=== PATIENT | female | born 1945 | race Caucasian/White ===

== ENCOUNTER 2018-02-18 13:16 | Emergency (ER) | payer MEDICARE, OTHER ==
[~2018-02-18] VITALS: Ht 170.2 cm; Wt 73.0 kg
[2018-02-18 13:20] VITALS: BP 175/79; PULSE 59; RESP 20; TEMP 97.4; O2SAT 96
--- NOTE | 2018-02-18 14:13 | PD ---
HPI Chief Complaint: Headache Time Seen by Provider: 13:58 Travel History International Travel<30 days: No Contact w/Intl Traveler<30days: No Traveled to known affect area: No History of Present Illness HPI 72-year-old female with history of normal pressure hydrocephalus, MATERIAL MOVERS shunt placed in 2016, hypertension, presents for evaluation of headache. She reports over the past week she has had a left frontal aching headache, stiff neck, nausea. Today she had 2 episodes of emesis. She reports that she has had similar headaches 2 times in the past, both times after an MRI which required her shunt settings to be reset. Most recently she had an MRI 1 month ago and had her shunt settings reset after she denies chest pain, shortness of breath, abdominal pain, fevers or chills. Her neurosurgeon is Dr. dumont in [facility]. [facility] Past Medical History Depression: Yes GERD: Yes Hypertension: Yes ?: Not Past Surgical History Hysterectomy: Yes Neurologic Surgery: Yes (lamynectomy, shunt ) Tympanostomy Tube: Yes Social History Alcohol Use: Yes (ocassional ) Tobacco Use: No Substance Use: No Allergies-Medications (Allergen,Severity, Reaction): Coded Allergies: hydrocodone (Verified Allergy, Unknown, 02/18/18) metoprolol (Verified Allergy, Unknown, 02/18/18) Reported Meds & Prescriptions Reported Meds & Active Scripts Active Reported Oxycodone-Acetaminophen 7.5-325 mg Tab 1 Tab PO Q4H PRN Magnesium Oxide 250 Mg Tab 250 Mg PO DAILY Stow 3 1000 mg (Stow-3 Fatty Acids) 300 Mg-1,000 Mg Cap 1,000 Mg PO HS Biotin 5 Mg Cap 5 Mg PO Multiple Vitamin 1 Tab 1 Tab PO DAILY Vitamin D-1000 (Cholecalciferol) 1,000 Unit Tab 1,000 Units PO DAILY Vitamin B-12 (Cyanocobalamin) 1,000 Mcg Tab 1,000 Mcg PO DAILY Aspirin 81 Mg Chew 81 Mg CHEW DAILY Detrol (Tolterodine Tartrate) 2 Mg Tab 2 Mg PO DAILY Requip (Ropinirole) 1 Mg Tab 1 Mg PO HS Latanoprost Opth Drops (Latanoprost) 0.005% Drops 1 Drop EACH EYE HS Refrigerate until opened. Tramadol (Tramadol HCl) 50 Mg Tab 50 Mg PO Q4H PRN Altace (Ramipril) 5 Mg Cap 5 Mg PO BID Protonix (Pantoprazole Sodium) 40 Mg Tab 40 Mg PO BID Celexa (Citalopram Hydrobromide) 20 Mg Tab 20 Mg PO DAILY Amlodipine (Amlodipine Besylate) 5 Mg Tab 5 Mg PO DAILY Review of Systems Except as stated in HPI: all other systems reviewed are Neg Physical Exam Narrative GENERAL: Well-developed well-nourished female no acute distress SKIN: Warm and dry. HEAD: Atraumatic. Normocephalic. EYES: Pupils equal and round reactive to light, extraocular muscles are intact, no nystagmus.. No scleral icterus. No injection or drainage. ENT: No nasal bleeding or discharge. Mucous membranes pink and moist. NECK: Trachea midline. No JVD. Neck supple full range of motion. CARDIOVASCULAR: Regular rate and rhythm. No murmur appreciated. RESPIRATORY: No accessory muscle use. Clear to auscultation. Breath sounds equal bilaterally. GASTROINTESTINAL: Abdomen soft, non-tender, nondistended. Hepatic and splenic margins not palpable. MUSCULOSKELETAL: No obvious deformities. No clubbing. No cyanosis. No edema. NEUROLOGICAL: Awake and alert. No obvious cranial nerve deficits. Motor grossly within normal limits. Normal speech. Data Data Last Documented VS Vital Signs Date Time Temp Pulse Resp B/P (MAP) Pulse Ox O2 Delivery O2 Flow Rate FiO2 02/18/18 17:20 61 16 193/87 (122) 97 02/18/18 13:20 97.4 Orders Orders Shunt Series (02/18/18 ) Ct Brain W/O Iv Contrast(Rout) (02/18/18 ) Complete Blood Count With Diff (02/18/18 14:08) Basic Metabolic Panel (Bmp) (02/18/18 14:08) Iv Access Insert/Monitor (02/18/18 14:08) Morphine Inj (Morphine Inj) (02/18/18 14:15) Metoclopramide Inj (Reglan Inj) (02/18/18 14:15) Skull, One View (02/18/18 ) Ramipril (Altace) (02/18/18 18:45) Amlodipine (Norvasc) (02/18/18 18:45) Consult Neurosurgery (02/18/18 ) Ed Discharge Order (02/18/18 18:51) Labs Laboratory Tests Test 02/18/18 14:30 White Blood Count 6.3 TH/MM3 Red Blood Count 4.10 MIL/MM3 Hemoglobin 13.2 GM/DL Hematocrit 39.4 % Mean Corpuscular Volume 96.0 FL Mean Corpuscular Hemoglobin 32.1 PG Mean Corpuscular Hemoglobin Concent 33.5 % Red Cell Distribution Width 12.8 % Platelet Count 235 TH/MM3 Mean Platelet Volume 7.1 FL Neutrophils (%) (Auto) 77.4 % Lymphocytes (%) (Auto) 15.4 % Monocytes (%) (Auto) 6.2 % Eosinophils (%) (Auto) 0.7 % Basophils (%) (Auto) 0.3 % Neutrophils # (Auto) 4.9 TH/MM3 Lymphocytes # (Auto) 1.0 TH/MM3 Monocytes # (Auto) 0.4 TH/MM3 Eosinophils # (Auto) 0.0 TH/MM3 Basophils # (Auto) 0.0 TH/MM3 CBC Comment DIFF FINAL Differential Comment Blood Urea Nitrogen 12 MG/DL Creatinine 0.74 MG/DL Random Glucose 116 MG/DL Calcium Level 8.6 MG/DL Sodium Level 140 MEQ/L Potassium Level 3.9 MEQ/L Chloride Level 104 MEQ/L Carbon Dioxide Level 25.4 MEQ/L Anion Gap 11 MEQ/L Estimat Glomerular Filtration Rate 77 ML/MIN MDM Medical Decision Making Medical Screen Exam Complete: Yes Emergency Medical Condition: Yes Medical Record Reviewed: Yes Differential Diagnosis Subdural hematoma, kinked MATERIAL MOVERS shunt, migraine, subarachnoid hemorrhage, MATERIAL MOVERS setting incorrect Narrative Course Lab work, shunt series, CT the brain was obtained. I discussed with the fellow who works with the patient's neurosurgeon Dr. Dumont. The patient's shunt setting is supposed to be 2.5. It is a strata 2 valve shunt. Discussed with the radiologist and a skull x-ray series was obtained revealing that the setting is at 1. I discussed the case with the on-call neurosurgeon Dr. Bruce. He came down and change the BP setting back to 2.5. The patient is stable for discharge. Diagnosis Primary Impression: Ventriculo-peritoneal shunt status Additional Impression: Cephalgia Additional Instructions: Follow-up with her neurosurgeon as needed when you return home and return here for any acutely new or worsening symptoms. Med/Other Pt SpecificInfo: No Change to Meds Disposition: 01 DISCHARGE HOME Condition: Stable Alex Quispe February 18, 2018 14:13
[2018-02-18] MEDS ORDERED: MORPHINE SULFATE 8 MG/ML INJ IV PUSH ONE (14:15)
[2018-02-18] MEDS ORDERED: METOCLOPRAMIDE HCL 10 MG/2 ML VIAL IVP ONE (14:15)
[2018-02-18] MEDS ORDERED: VITA1000 PO (14:16)
[2018-02-18] MEDS ORDERED: LATA0.002 EACH EYE (14:16)
[2018-02-18] MEDS ORDERED: CELE20TA PO (14:16)
[2018-02-18] MEDS ORDERED: MAGN250T11 PO (14:16)
[2018-02-18] MEDS ORDERED: MULTTAB67 PO (14:16)
[2018-02-18] MEDS ORDERED: DETR2TAB PO (14:16)
[2018-02-18] MEDS ORDERED: ROPI1TAB72 PO (14:16)
[2018-02-18] MEDS ORDERED: ASPI-516 CHEW (14:16)
[2018-02-18] MEDS ORDERED: VITA10002 PO (14:16)
[2018-02-18] MEDS ORDERED: TRAM50TA PO (14:16)
[2018-02-18] MEDS ORDERED: OMEG100010 PO (14:16)
[2018-02-18] MEDS ORDERED: PROT40TA PO (14:16)
[2018-02-18] MEDS ORDERED: BIOTCAP PO (14:16)
[2018-02-18] MEDS ORDERED: OXYC1TAB35 PO (14:16)
[2018-02-18] MEDS ORDERED: ALTA5CAP4 PO (14:16)
[2018-02-18] MEDS ORDERED: AMLO5TAB2 PO (14:16)
[2018-02-18 14:38] LABS: AUTOMATED NEUTROPHIL # 4.9 TH/MM3 (1.8-7.7); BASOPHIL % 0.3 % (0.0-2.0); EOSINOPHIL % 0.7 % (0.0-4.0); HEMATOCRIT 39.4 % (35.0-46.0); HEMOGLOBIN 13.2 GM/DL (11.6-15.3); LYMPH % 15.4 % (9.0-44.0); MEAN CORPUSCULAR HEMOGLOBIN 32.1 PG (27.0-34.0); MEAN CORPUSCULAR HGB CONC 33.5 % (32.0-36.0); MEAN PLATELET VOLUME 7.1 FL (7.0-11.0); MONO % 6.2 % (0.0-8.0); MONOCYTE # 0.4 TH/MM3 (0-0.9); NEUT % 77.4 % (16.0-70.0); PLATELET COUNT 235 TH/MM3 (150-450); RED CELL DISTRIBUTION WIDTH 12.8 % (11.6-17.2); WHITE BLOOD COUNT 6.3 TH/MM3 (4.0-11.0)
[2018-02-18 14:55] LABS: BICARBONATE 25.4 MEQ/L (21.0-32.0); CALCIUM 8.6 MG/DL (8.5-10.1); CREATININE 0.74 MG/DL (0.50-1.00)
--- NOTE | 2018-02-18 15:40 | RADRPT ---
EXAM DATE: 02/18/2018 3:17 PM EDT AGE/SEX: 72 years / Female INDICATIONS: Left sided headache CLINICAL DATA: This is the patient's initial encounter. Patient reports that signs and symptoms have been present for 1 day and indicates a pain score of 7/10. MEDICAL/SURGICAL HISTORY: Hypertension. Heart disease. Hysterectomy. Shunt, laminectomy RADIATION DOSE: 56.35 CTDI (mGy) COMPARISON: No prior [place] exams available for comparison. TECHNIQUE: CT of the head without contrast. Using automated exposure control and adjustment of the mA and/or kV according to patient size, radiation dose was kept as low as reasonably achievable to ob tain optimal diagnostic quality images. FINDINGS: Cerebrum: There is a posterior right HOME TEACHING GRADES 9 THRU 12 TEACHER shunt with tubing near the frontal horn of the right ventricl e. Moderate diffuse cerebral atrophy. The ventricles are normal in size for degree of atrophy. No amanda dence of midline shift, mass lesion, hemorrhage or acute infarction. No extraaxial fluid collections are seen. Posterior Fossa: The cerebellum and brainstem are intact. The 4th ventricle is midline. The cerebe llopontine angle is unremarkable. Extracranial: The visualized portion of the orbits is intact. Skull: The calvaria is intact. No evidence of skull fracture. CONCLUSION: 1. Right HOME TEACHING GRADES 9 THRU 12 TEACH[address] shunt in place without significant hydrocephalus. 2. Senescent changes without acute intracranial abnormality. Electronically signed by: Abhijeet Rodrigues MD 02/18/2018 3:38 PM EDT
--- NOTE | 2018-02-18 15:55 | RADRPT ---
EXAM DATE: 02/18/2018 2:53 PM EDT AGE/SEX: 72 years / Female INDICATIONS: Evaluate shunt, headache CLINICAL DATA: This is the patient's initial encounter. Patient reports that signs and symptoms have been present for 1 day and indicates a pain score of 2/10. MEDICAL/SURGICAL HISTORY: None. . Shunt placement COMPARISON: No prior [place] exams available for comparison. FINDINGS: Examination includes two-view skull, two-view C-spine, and frontal views of the chest and abdomen. Ventriculostomy shunt tip is projected in the right frontal region . The alignment of the tubing w ith the reservoir is maintained without evidence of separation. The shunt tubing has a normal course through the neck and chest without discontinuity or kink. The shunt tubing is coiled in the abdomen without displacement of the bowel about the distal tip. CONCLUSION: Intact appearing ventriculoperitoneal shunt Electronically signed by: Chauncey Hayes MD 02/18/2018 3:54 PM EDT
--- NOTE | 2018-02-18 17:17 | RADRPT ---
EXAM DATE: 02/18/2018 5:12 PM EDT AGE/SEX: 72 years / Female INDICATIONS: Evaluate shunt valve setting. CLINICAL DATA: This is the patient's initial encounter. Patient reports that signs and symptoms have been present for 1 day and indicates a pain score of 0/10. MEDICAL/SURGICAL HISTORY: None. None. COMPARISON: No prior [place] exams available for comparison. FINDINGS: The setting on the Medtronic shunt is P/L 1.0. CONCLUSION: Shunt setting as above Electronically signed by: Miguel Burton MD 02/18/2018 5:16 PM EDT
[2018-02-18 17:20] VITALS: BP 193/87; PULSE 61; RESP 16; O2SAT 97
[2018-02-18] MEDS ORDERED: RAMIPRIL 5 MG CAP PO ONE (18:45)
[2018-02-18] MEDS ORDERED: amLODIPine BESYLATE 5 MG TAB PO ONE (18:45)
[2018-02-18 18:57] VITALS: BP 224/95; PULSE 70; RESP 19; O2SAT 97
[2018-02-18] MEDS: hydrALAZINE HCL 20 MG/ML VIAL IV PUSH ONE ×2 (19:00→19:08)
--- NOTE | 2018-02-18 19:19 | PD.CONS ---
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 She reports over the past week she has had a left frontal aching headache, stiff neck, nausea. Today she had 2 episodes of emesis. She reports that she has had similar headaches 2 times in the past, both times after an MRI which required her shunt settings to be reset and her symptoms resolved within a day thereafter. Most recently she had an MRI 1 month ago and had her shunt settings reset after she denies chest pain, shortness of breath, abdominal pain, fevers or chills. Her neurosurgeon is Dr. dumont in [facility] in the emergency room physician was able to contact their office and the valve is a Medtronic strata with pressure setting of 2.5 and the patient confirms that. Review of Systems Constitutional: DENIES: Diaphoretic episodes, Fatigue, Fever, Weight gain, Weight loss, Chills, Dizziness, Change in appetite, Night Sweats Endocrine: DENIES: Abnorml menstrual pattern, Heat/cold intolerance, Polydipsia , Polyuria, Polyphagia Eyes: DENIES: Blurred vision, Diplopia, Eye inflammation, Eye pain, Vision loss , Photosensitivity, Double Vision Ears, nose, mouth, throat: DENIES: Tinnitus, Hearing loss, Vertigo, Nasal discharge, Oral lesions, Throat pain, Hoarseness, Ear Pain, Running Nose, Epistaxis, Sinus Pain, Toothache, Odynophagia Respiratory: DENIES: Apneas, Cough, Snoring, Wheezing, Hemoptysis, Sputum production, Shortness of breath Cardiovascular: DENIES: Chest pain, Palpitations, Syncope, Dyspnea on Exertion , PND, Lower Extremity Edema, Orthopnea, Claudication Gastrointestinal: COMPLAINS OF: Nausea, DENIES: Abdominal pain, Black stools, Bloody stools, Constipation, Diarrhea, Vomiting, Difficulty Swallowing, Anorexia Genitourinary: DENIES: Abnormal vaginal bleeding, Dysmenorrhea, Dyspareunia, Sexual dysfunction, Urinary frequency, Urinary incontinence, Urgency, Hematuria , Dysuria, Nocturia, Vaginal discharge Musculoskeletal: COMPLAINS OF: Stiffness, Neck pain, DENIES: Joint pain, Muscle aches, Joint Swelling, Back pain Integumentary: DENIES: Abnormal pigmentation, Pruritus, Rash, Nail changes, Breast masses, Breast skin changes, Nipple discharge Hematologic/lymphatic: DENIES: Bruising, Lymphadenopathy Immunologic/allergic: DENIES: Eczema, Urticaria Neurologic: COMPLAINS OF: Headache, DENIES: Abnormal gait, Localized weakness, Paresthesias, Seizures, Speech Problems, Tremor, Poor Balance Psychiatric: DENIES: Anxiety, Confusion, Mood changes, Depression, Hallucinations, Agitation, Suicidal Ideation, Homicidal Ideation, Delusions Except as stated in HPI: all other systems reviewed are Neg Past Family Social History Allergies: Coded Allergies: hydrocodone (Verified Allergy, Unknown, 02/18/18) metoprolol (Verified Allergy, Unknown, 02/18/18) Past Medical History Normal-pressure hydrocephalus, hypertension, gastroesophageal reflux, depression Past Surgical History Right occipital ventriculoperitoneal shunt placement in 2016 in [place], laminectomy Reported Medications Oxycodone-Acetaminophen 7.5-325 mg Tab 1 Tab PO Q4H PRN Magnesium Oxide 250 Mg Tab 250 Mg PO DAILY Orford 3 1000 mg (Orford-3 Fatty Acids) 300 Mg-1,000 Mg Cap 1,000 Mg PO HS Biotin 5 Mg Cap 5 Mg PO Multiple Vitamin 1 Tab 1 Tab PO DAILY Vitamin D-1000 (Cholecalciferol) 1,000 Unit Tab 1,000 Units PO DAILY Vitamin B-12 (Cyanocobalamin) 1,000 Mcg Tab 1,000 Mcg PO DAILY Aspirin 81 Mg Chew 81 Mg CHEW DAILY Detrol (Tolterodine Tartrate) 2 Mg Tab 2 Mg PO DAILY Requip (Ropinirole) 1 Mg Tab 1 Mg PO HS Latanoprost Opth Drops (Latanoprost) 0.005% Drops 1 Drop EACH EYE HS Refrigerate until opened. Tramadol (Tramadol HCl) 50 Mg Tab 50 Mg PO Q4H PRN Altace (Ramipril) 5 Mg Cap 5 Mg PO BID Protonix (Pantoprazole Sodium) 40 Mg Tab 40 Mg PO BID Celexa (Citalopram Hydrobromide) 20 Mg Tab 20 Mg PO DAILY Amlodipine (Amlodipine Besylate) 5 Mg Tab 5 Mg PO DAILY Family History Unremarkable Social History Former smoker and drinks alcohol on a social basis. She is and her is here with her. She is on vacation from the [facility]. Physical Exam Vital Signs Vital Signs Date Time Temp Pulse Resp B/P (MAP) Pulse Ox O2 Delivery O2 Flow Rate FiO2 02/18/18 18:57 70 19 224/95 (138) 97 Room Air 02/18/18 17:20 61 16 193/87 (122) 97 02/18/18 14:45 18 02/18/18 13:20 97.4 59 20 175/79 (111) 96 Physical Exam GENERAL: This is a well-nourished, well-developed patient, in no apparent distress. SKIN: No rashes, ecchymoses or lesions. Cool and dry. HEAD: Atraumatic. Normocephalic. Right occipital ventriculoperitoneal shunt valve palpable with the reservoir that refills well and nontender. EYES: Pupils equal round and reactive. Extraocular motions intact. No scleral icterus. No injection or drainage. ENT: Nose without bleeding, purulent drainage or septal hematoma. Throat without erythema, tonsillar hypertrophy or exudate. Uvula midline. Airway patent. NECK: Trachea midline. No JVD or lymphadenopathy. Supple, nontender, no meningeal signs. CARDIOVASCULAR: Regular rate and rhythm without murmurs, gallops, or rubs. RESPIRATORY: Clear to auscultation. Breath sounds equal bilaterally. No wheezes , rales, or rhonchi. GASTROINTESTINAL: Abdomen soft, non-tender, nondistended. No hepato-splenomegaly , or palpable masses. No guarding. MUSCULOSKELETAL: Extremities without clubbing, cyanosis, or edema. No joint tenderness, effusion, or edema noted. No calf tenderness. Negative Homans sign bilaterally. NEUROLOGICAL: Awake and alert. Cranial nerves II through XII intact. Motor and sensory grossly within normal limits. Five out of 5 muscle strength in all muscle groups. Normal speech. Laboratory Laboratory Tests Test 02/18/18 14:30 White Blood Count 6.3 Red Blood Count 4.10 Hemoglobin 13.2 Hematocrit 39.4 Mean Corpuscular Volume 96.0 Mean Corpuscular Hemoglobin 32.1 Mean Corpuscular Hemoglobin Concent 33.5 Red Cell Distribution Width 12.8 Platelet Count 235 Mean Platelet Volume 7.1 Neutrophils (%) (Auto) 77.4 Lymphocytes (%) (Auto) 15.4 Monocytes (%) (Auto) 6.2 Eosinophils (%) (Auto) 0.7 Basophils (%) (Auto) 0.3 Neutrophils # (Auto) 4.9 Lymphocytes # (Auto) 1.0 Monocytes # (Auto) 0.4 Eosinophils # (Auto) 0.0 Basophils # (Auto) 0.0 CBC Comment DIFF FINAL Differential Comment Blood Urea Nitrogen 12 Creatinine 0.74 Random Glucose 116 Calcium Level 8.6 Sodium Level 140 Potassium Level 3.9 Chloride Level 104 Carbon Dioxide Level 25.4 Anion Gap 11 Estimat Glomerular Filtration Rate 77 Result Diagram: 02/18/18 1430 02/18/18 1430 Imaging Last Impressions Skull X-Ray 02/18/18 0000 Signed Impressions: CONCLUSION: Shunt setting as above Shunt Study (Imaging) 02/18/18 0000 Signed Impressions: CONCLUSION: Intact appearing ventriculoperitoneal shunt Head CT 02/18/18 0000 Signed Impressions: CONCLUSION: 1. Right DENTISTRY TEACHER shunt in place without significant hydrocephalus. 2. Senescent changes without acute intracranial abnormality. Assessment and Plan Assessment and Plan 72-year-old lady with a history of normal-pressure hydrocephalus status post right occipital ventriculoperitoneal shunt placement with a Medtronic strata valve pressure setting at 2.5. With the past week she has had complaints of headaches and stiffness in her neck and nausea with symptoms similar to previous findings shunt valve pressure setting being offset. CT scan of the head as well as shunt series are intact with no acute changes noted in the skull x-ray confirmed position pressure setting of 1.0. I readjusted the DENTISTRY TEACHER shunt pressure setting from 1.0 to 2.5 and this was confirmed with the strata senior database programmer. Patient will follow up with her neurosurgeon in [place]. Discussed with and emergency room physician. Herberth Bruce MD February 18, 2018 19:19
[2018-02-18 19:33] VITALS: BP 172/78; PULSE 64; RESP 18; O2SAT 96
== END 2018-02-18 19:57 | disposition home or self-care (01) ==
LOC: NEPC 13:16
DX: R51 Headache (principal); M43.6 Torticollis; I10 Essential (primary) hypertension; G91.9 Hydrocephalus, unspecified; F32.9 Major depressive disorder, single episode, unspecified; K21.9 Gastro-esophageal reflux disease without esophagitis; Z98.2 Presence of cerebrospinal fluid drainage device; Z87.891 Personal history of nicotine dependence; Z79.82 Long term (current) use of aspirin
CPT/HCPCS: 70250; 70450; 71045; 72040; 74018; 80048; 85025; 96374; 96375; 99284; J2270; J2765; J0360